=== PATIENT | female | born 1990 | race Caucasian/White ===

== ENCOUNTER 2020-07-17 20:16 | Emergency (ER) | payer OTHER ==
[~2020-07-17 20:16] MED LIST: NORCO 5-325 TA1 EACH PO; TORADOL 10 MG T10 MG PO; ZOFRAN ODT4 MG SL
== END 2020-07-18 00:07 | disposition left against medical advice (07) ==
LOC: ER1 20:16
DX: R06.02 Shortness of breath (principal); J02.9 Acute pharyngitis, unspecified; R05 Cough; R50.9 Fever, unspecified; Z53.21 Procedure and treatment not carried out due to patient leaving prior to being seen by health care provider

== ENCOUNTER 2021-03-02 10:12 | Emergency (ER) | payer OTHER ==
[2021-03-02] MEDS ORDERED: ZITHROMAX250 MG PO (12:57)
[2021-03-02] MEDS ORDERED: MEDROL DOSEPAK 24 MG PO (12:57)
[2021-03-02] MEDS ORDERED: ZOFRAN4 MG PO (12:57)
== END 2021-03-02 13:01 | disposition home or self-care (01) ==
LOC: ER1 10:12
DX: R06.02 Shortness of breath (principal); R05 Cough; Z20.822 Contact with and (suspected) exposure to COVID-19; Z90.49 Acquired absence of other specified parts of digestive tract
CPT/HCPCS: 71045; 99285; U0002

== ENCOUNTER → 2021-06-11 | Outpatient (CLI) | payer OTHER ==
[~2021-06-11] MED LIST changes: +MEDROL DOSEPAK 24 MG PO; +ZITHROMAX250 MG PO; +ZOFRAN4 MG PO
== END ==
LOC: KOH-I 10:40
DX: M25.571 Pain in right ankle and joints of right foot (principal); M79.89 Other specified soft tissue disorders
CPT/HCPCS: 73610

== ENCOUNTER → 2021-10-16 | Outpatient (CLI) | payer OTHER ==
[~2021-10-16] MED LIST changes: +HYDROCODONE-CH473 ML PO; +Tussionex Pennkineti
== END ==
LOC: KOH-I 16:09
DX: J20.9 Acute bronchitis, unspecified (principal); Z86.16 Personal history of COVID-19; Z88.1 Allergy status to other antibiotic agents
CPT/HCPCS: 71046

== ENCOUNTER 2021-10-17 22:53 | Emergency (ER) | payer OTHER ==
[~2021-10-17 22:53] MED LIST changes: -HYDROCODONE-CH473 ML PO; -Tussionex Pennkineti
[2021-10-17 23:41] LABS: HEMOGLOBIN 13.5 gm/dl (12.3-15.3); RED BLOOD COUNT 5.2 M/UL (4.00-5.10); WHITE BLOOD COUNT 8.3 K/UL (4.5-11.0)
[2021-10-18 00:02] LABS: BUN/CREATININE RATIO 12 (0-10)
[2021-10-18 01:58] LABS: BUN/CREATININE RATIO 14 (0-10)
[2021-10-18] MEDS ORDERED: Tussionex Pennkineti (03:58)
[2021-10-18] MEDS ORDERED: HYDROCODONE-CH473 ML PO ×2 (09:00→09:41)
== END 2021-10-18 04:25 | disposition home or self-care (01) ==
LOC: ER1 22:53
PROVIDERS: Family Medicine
DX: R05.3 Chronic cough (principal); Z88.1 Allergy status to other antibiotic agents
CPT/HCPCS: 80053; 81001; 82550; 82553; 84484; 84703; 85025; 85379; 87086; 93005; 94640; 94664; 96374; 99285; J2930; Q9967